=== PATIENT | female | born 1985 | race Two or more races ===

== ENCOUNTER 2021-08-18 21:12 | Emergency (ER) | payer SELFPAY ==
[~2021-08-18] VITALS: Ht 167.6 cm; Wt 64.0 kg
[2021-08-18] MEDS ORDERED: MORPHINE SULFATE 4 MG/ML CPJ (NOT FOR IM USE) IV STA (22:10)
[2021-08-18] MEDS ORDERED: SODIUM CHLORIDE 0.9% 1,000 ML IV ONE (22:15)
[2021-08-18 22:55] LABS: BASOPHILS % 1.3 % (0.0-2.0); EOSINOPHILS % 1.7 % (0.0-5.0); HEMOGLOBIN. 13.7 g/dL (12.0-16.0); MEAN CORPUSCULAR HEMOGLOBIN 32.7 pg (28.0-32.0); MEAN CORPUSCULAR VOLUME 95.7 fL (81.0-99.0); MEAN PLATELET VOLUME 7.8 fl (7.4-10.4); MONOCYTES % 7.1 % (2.0-8.0); NEUTROPHILS % 75.9 % (40.0-76.0); PLATELET 365 x1000/uL (130-400); RED BLOOD CELL COUNT 4.18 mill/uL (4.2-5.4); RED CELL DISTRIBUTION WIDTH 12.7 % (11.6-14.6)
[2021-08-18] MEDS ORDERED: ONDANSETRON HCL 4MG/2ML INJ IV ONE (23:00)
[2021-08-18 23:01] LABS: CHLORIDE 106 mEq/L (98-107)
[2021-08-18 23:10] LABS: HCG SCREEN NEGATIVE
[2021-08-19] MEDS ORDERED: IBUP-2028 MT (02:25)
[2021-08-19 02:30] VITALS: BP 124/80
[2021-08-19] MEDS ORDERED: IOHEXOL-300 100 ML BOTTLE ONE (03:41)
== END 2021-08-19 03:00 | disposition home or self-care (01) ==
LOC: ER 21:12
DX: N83.01 Follicular cyst of right ovary (principal); N83.02 Follicular cyst of left ovary; Z88.1 Allergy status to other antibiotic agents
CPT/HCPCS: 36415; 74177; 76830; 76856; 80053; 83690; 84703; 85025; 93005; 96360; 99285; J2270; J2405; J7030; Q9967